=== PATIENT | male | born 1950 | race Two or more races ===

== ENCOUNTER 2016-10-29 09:55 | Inpatient (IN) | payer MEDICAID ==
[~2016-10-29] VITALS: Ht 172.7 cm; Wt 72.6 kg
[2016-10-29] VITALS (8 sets, daily range): BP systolic 82–122; BP diastolic 50–71
[2016-10-29 10:50] LABS: MEAN CORPUSCULAR HEMOGLOBIN 31.5 PG (27.0-31.0); MEAN CORPUSCULAR HGB CONC 35.1 G/DL (32.0-36.0); MEAN CORPUSCULAR VOLUME 90 FL (80-99); MEAN PLATELET VOLUME 6.2 FL (6.5-10.1); PLATELET COUNT 323 K/UL (150-450); RED BLOOD COUNT 4.21 M/UL (4.70-6.10); RED CELL DISTRIBUTION WIDTH 11.7 % (11.6-14.8); WHITE BLOOD COUNT 20.6 K/UL (4.8-10.8)
[2016-10-29] MEDS ORDERED: SULFAMETHOXAZO1 EAC2 ORAL (10:55)
[2016-10-29] MEDS ORDERED: AMLODIPINE BESY10 MG ORAL (10:55)
[2016-10-29] MEDS ORDERED: LISINOPRIL40 MG ORAL (10:55)
[2016-10-29] MEDS ORDERED: CHLORTHALIDONE25 MG ORAL (10:55)
[2016-10-29 11:02] LABS: ALANINE AMINOTRANSFERASE 47 U/L (3-41); ALBUMIN/GLOBULIN RATIO 0.9 (1.0-2.7); ANION GAP 19 (5-15); ASPARTATE AMINO TRANSFERASE 44 U/L (5-40); CALCIUM 9.4 mg/dL (8.6-10.2); CARBON DIOXIDE 23 mEQ/L (20-30); CHLORIDE 84 mEQ/L (98-107); CREATININE 1.2 mg/dL (0.7-1.2); GLOMERULAR FILTRATION RATE > 60 mL/min (>60); HEMOLYSIS 0; POTASSIUM 4.5 mEQ/L (3.4-4.9); SODIUM 126 mEQ/L (135-145); TOTAL PROTEIN 8.8 g/dL (6.6-8.7)
[2016-10-29 11:03] LABS: TROPONIN I < 0.30 ng/mL (<=0.30)
[2016-10-29 11:13] LABS: CKMB < 1.5 ng/mL (< 6.7)
[2016-10-29 11:23] LABS: BILIRUBIN,DIRECT 0.4 mg/dL (0.1-0.3)
[2016-10-29 11:31] LABS: APPEARANCE,URINE SLIGHTLY CLOUDY; KETONES,URINE NEGATIVE (NEGATIVE); LEUKOCYTE ESTERASE ,URINE 3+ (NEGATIVE); NITRITE,URINE POSITIVE (NEGATIVE); PH,URINE 6 (4.5-8.0); PROTEIN,URINE 2+ (NEGATIVE); UROBILINOGEN,URINE 8 MG/DL (0.0-1.0)
[2016-10-29 11:43] LABS: BACTERIA,URINE MANY /HPF; ICTOTEST NEGATIVE; SQUAMOUS EPITHELIAL CELL,UR FEW /LPF (NONE/OCC); WBC,URINE 30-40 /HPF (0 - 0)
[2016-10-29 11:46] LABS: NEUTROPHILS % (MANUAL) 88 % (45-75); TOTAL CELLS COUNTED 100
[2016-10-29 11:47] LABS: BAND NEUTROPHILS % (MANUAL) 0 % (0-8); BASOPHILS % (MANUAL) 0 % (0-2); EOSINOPHILS % (MANUAL) 0 % (0-3); LYMPHOCYTES % (MANUAL) 6 % (20-45); PLATELET ESTIMATE ADEQUATE; PLATELET MORPHOLOGY NORMAL
--- NOTE | 2016-10-29 11:48 | Diagnostic Imaging Report ---
Indication: SOB Technique: One view of the chest Comparison: none Findings: Lungs and pleural spaces are clear. Inspiration is suboptimal. Heart size is upper normal. Aorta is slightly tortuous. Metallic densities in the right supraclavicular region have appearance of vascular embolization coils, but could also be extraneous to the patient. Impression: No acute process. Findings as noted
[2016-10-29] MEDS ORDERED: Piperacillin/Tazobactam 3.375 GM in NS 110 ML IVPB ONE (12:15)
[2016-10-29] MEDS ORDERED: Vancomycin 1.5gm/D5W 300ml 325 ML IVPB ONE (12:15)
[2016-10-29] MEDS ORDERED: LR 1000ml 1,000 ML IV STA ×2 (12:17→13:37)
--- NOTE | 2016-10-29 12:17 | Emergency Room Report ---
History of Present Illness General Chief Complaint: Fever Source: Family Member Present Illness HPI 66YOM BIB family members with "epigastric pain" and nausea/vomiting. Per straightening roll operator, family states patient on tx for UTI. Had previous CVA so is " altered at baseline." I do not see other family members bedside. Patient has not been here before so no additional med info is available. Allergies: Coded Allergies: No Known Allergies (Unverified , 10/29/16) Patient History Past Medical History: CVA/TIA Past Surgical History: unable to obtain Pertinent Family History: unable to obtain Social History: Denies: alcohol use, drug use, smoking Immunizations: UTD Reviewed Nursing Documentation: PMH: Agreed, PSxH: Agreed Nursing Documentation-PMH Past Medical History: No History, Except For Hx Hypertension: Yes Hx Diabetes: Yes - Borderline Hx Neurological Problems: Yes - 2016 Review of Systems All Other Systems: limited - ?AMS Physical Exam Vital Signs Date Time Temp Pulse Resp B/P Pulse Ox O2 Delivery O2 Flow Rate FiO2 10/29/16 10:12 100.6 106 18 106/59 99 Room Air Sp02 EP Interpretation: reviewed, abnormal General Appearance: normal inspection, well appearing, no apparent distress, alert, non-toxic Head: normocephalic, atraumatic Eyes: bilateral eye EOMI, bilateral eye PERRL ENT: normal ENT inspection, hearing grossly normal, normal voice Neck: normal inspection, full range of motion, supple, thyroid normal, no meningismus, no bony tend Respiratory: normal inspection, lungs clear, normal breath sounds, no rhonchi, no respiratory distress, no retraction, no accessory muscle use, no wheezing Cardiovascular #1: regular rate, rhythm, no edema Gastrointestinal: normal inspection, normal bowel sounds, non tender, soft, no guarding, no hernia Genitourinary: no CVA tenderness Musculoskeletal: normal inspection, back normal, normal range of motion, Jayce' s Sign negative Neurologic: normal inspection, alert, responsive, separating machine operator III-XII nml as tested, motor strength/tone normal, speech normal Psychiatric: normal inspection, judgement/insight normal, mood/affect normal Skin: normal inspection, normal color, no rash Medical Decision Making Diagnostic Impression: Primary Impression: Fever Qualified Codes: R50.9 - Fever, unspecified Additional Impressions: Sepsis Qualified Codes: A41.9 - Sepsis, unspecified organism UTI (urinary tract infection) Qualified Codes: N30.01 - Acute cystitis with hematuria Hyponatremia ER Course VS significant for fever, hypotension Labs: Leuks 21k. Urine grossly infected. Elevated LFTs but abd soft, NT/ND Empiric Abx given Blood and Urine Cx pending Hemodynamics improved with Abx, tylenol, IVF Will get abd sono to r/o cholecystitis as well Endorsed to Dr Andrade for tele admission at 1216pm EKG Diagnostic Results Rate: normal, other - RBBB ST Segments: no acute changes ASA given to the pt in ED: No Rhythm Strip Diag. Results EP Interpretation: yes Rate: 83 Rhythm: NSR, no PVC's, no ectopy Chest X-Ray Diagnostic Results EP Interpretation: Yes Findings: no consolidation, no effusion, no pneumothorax Number of Views: 1 Last Vital Signs Date Time Temp Pulse Resp B/P Pulse Ox O2 Delivery O2 Flow Rate FiO2 10/29/16 12:00 84 15 86/53 97 Room Air 10/29/16 11:39 99.1 Status: improved Disposition: ADMITTED INPATIENT Condition: Serious Referrals: NON PHYSICIAN (PCP) VALERIE RANGEL M.D. Oct 29, 2016 12:16
[2016-10-29] MEDS ORDERED: Zosyn 3.375gm inj ONE (12:21)
[2016-10-29] MEDS ORDERED: NS 110 ML ONE (12:21)
[2016-10-29] MEDS: Piperacillin/Tazobactam 3.375 GM in D5W 110 ML IVPB SCH (21:27)
[2016-10-29] MEDS: Heparin 5000 units/ml inj SUBQ SCH (21:29)
[2016-10-30] VITALS: BP 117/58
[2016-10-30 04:00] VITALS: BP 106/57
[2016-10-30] MEDS: Piperacillin/Tazobactam 3.375 GM in D5W 110 ML IVPB SCH ×3 (04:58→21:49)
[2016-10-30 08:00] VITALS: BP 129/85
[2016-10-30 08:47] LABS: MEAN CORPUSCULAR HEMOGLOBIN 32.5 PG (27.0-31.0); MEAN CORPUSCULAR HGB CONC 36.1 G/DL (32.0-36.0); MEAN CORPUSCULAR VOLUME 90 FL (80-99); MEAN PLATELET VOLUME 6.2 FL (6.5-10.1); PLATELET COUNT 198 K/UL (150-450); RED BLOOD COUNT 3.19 M/UL (4.70-6.10); RED CELL DISTRIBUTION WIDTH 11.9 % (11.6-14.8); WHITE BLOOD COUNT 13.8 K/UL (4.8-10.8)
[2016-10-30 09:07] LABS: ALANINE AMINOTRANSFERASE 40 U/L (3-41); ALBUMIN/GLOBULIN RATIO 0.7 (1.0-2.7); ANION GAP 17 (5-15); ASPARTATE AMINO TRANSFERASE 44 U/L (5-40); CALCIUM 8.3 mg/dL (8.6-10.2); CARBON DIOXIDE 21 mEQ/L (20-30); CHLORIDE 91 mEQ/L (98-107); CREATININE 0.7 mg/dL (0.7-1.2); GLOMERULAR FILTRATION RATE > 60 mL/min (>60); HEMOLYSIS 2; POTASSIUM 3.7 mEQ/L (3.4-4.9); SODIUM 129 mEQ/L (135-145); TOTAL PROTEIN 6.6 g/dL (6.6-8.7)
[2016-10-30] MEDS: Heparin 5000 units/ml inj SUBQ SCH ×2 (09:19→20:28)
[2016-10-30 11:08] LABS: BAND NEUTROPHILS % (MANUAL) 0 % (0-8); BASOPHILS % (MANUAL) 0 % (0-2); EOSINOPHILS % (MANUAL) 0 % (0-3); HYPOCHROMASIA 1+; LYMPHOCYTES % (MANUAL) 6 % (20-45); NEUTROPHILS % (MANUAL) 86 % (45-75); PLATELET ESTIMATE ADEQUATE; PLATELET MORPHOLOGY NORMAL; TOTAL CELLS COUNTED 100
[2016-10-30 11:09] LABS: ANISOCYTOSIS 1+
[2016-10-30 12:00] VITALS: BP 114/74
--- NOTE | 2016-10-30 14:23 | Cardiology Report ---
APPROVED REPORT EKG Measurement Heart [id number] Normal sinus rhythm Right bundle branch block Cannot rule out Inferior infarct, age undetermined Abnormal ECG
[2016-10-30 16:00] VITALS: BP 122/68
--- NOTE | 2016-10-30 18:28 | History and Physical Report ---
DATE OF ADMISSION: 10/29/2016 CHIEF COMPLAINT: Sepsis. HISTORY OF PRESENT ILLNESS: The patient is a 66-year-old male. He is somewhat confused. He was apparently brought in by family members with complaints of abdominal pain, nausea, and vomiting. He has been on treatment for urinary tract infection, but it failed to improve. On evaluation in the emergency room, the patient was febrile with leukocytosis. He had evidence of urinary tract infection based on laboratories. He has been started on IV antibiotic therapy. He is now admitted for further evaluation and care. He is unable to provide any history. I have attempted to call the family, but no one answered the phone and there was no way to leave a message. PAST MEDICAL HISTORY: Apparently significant for history of stroke. PAST SURGICAL HISTORY: Unknown. CURRENT MEDICATIONS: Unknown. SOCIAL HISTORY: There is no known history of tobacco, ethanol, or drugs. FAMILY HISTORY: Unknown. REVIEW OF SYSTEMS: Unobtainable as the patient is confused. PHYSICAL EXAMINATION: VITAL SIGNS: T-max 102.4 degrees, temperature current is 98.2 degrees, pulse 84, respirations 20, and blood pressure 106/57. GENERAL: The patient is a well-developed male, in no apparent distress. He is awake and alert, but is confused. NECK: Supple. There is no jugular venous distention. HEART: Regular rate and rhythm. LUNGS: Clear. ABDOMEN: Soft and minimally tender in the suprapubic pubic region. EXTREMITIES: Without clubbing, cyanosis, or edema. There is right-sided weakness noted that is apparently chronic. LABORATORY DATA: White count 21,000, hemoglobin 13, hematocrit 37, and platelet count of 323,000. Sodium 126, potassium 4.5, chloride 84, bicarb 23, BUN 17, and creatinine is 1.2. Total bilirubin 1.3, AST 44, and ALT is 47. Urine showed 30 to 40 WBCs. ASSESSMENT: This is a 66-year-old male admitted with complaints of urinary tract infection and sepsis. 1. Urinary tract infection and sepsis, possible pyelonephritis. 2. Hyponatremia. 3. Dehydration. 4. History of stroke with right-sided hemiparesis. PLAN: 1. IV antibiotics. 2. Intravenous fluids. 3. Follow up cultures. 4. We will try to contact family regarding the patient's past medical history. Emmanuel Andrade M.D. DR: HENRRY JOB#: [id number] CC:
[2016-10-30 20:00] VITALS: BP 140/73
[2016-10-31] VITALS: BP 121/69
[2016-10-31 04:00] VITALS: BP 110/58
[2016-10-31] MEDS: Piperacillin/Tazobactam 3.375 GM in D5W 110 ML IVPB SCH ×3 (06:02→22:08)
[2016-10-31 08:00] VITALS: BP 125/72
[2016-10-31] MEDS: Heparin 5000 units/ml inj SUBQ SCH ×2 (08:20→21:31)
--- NOTE | 2016-10-31 10:38 | Diagnostic Imaging Report ---
Indication: Pain Technique: Grayscale and duplex images of the kidneys, retroperitoneum, and bladder were obtained. Comparison:None Findings: Right kidney measures 13.2 cm in length. Left kidney measures 13.1 cm in length. Both kidneys demonstrate normal echogenicity. No hydronephrosis. No focal abnormality. Normal inferior vena cava. Bladder demonstrates a postvoid residual volume of 53 mL. There is incidental finding of splenomegaly, spleen measuring 18 cm long axis dimension. Impression: Negative for hydronephrosis 53 mm post void bladder residual Splenomegaly.
[2016-10-31 12:03] VITALS: BP 116/60
--- NOTE | 2016-10-31 14:15 | General Progress Note ---
Assessment/Plan Problem List: (1) UTI (urinary tract infection) ICD Codes: N39.0 - Urinary tract infection, site not specified SNOMED: 30396586 Qualifiers: Qualified Codes: N30.01 - Acute cystitis with hematuria (2) Hyponatremia ICD Codes: E87.1 - Hypo-osmolality and hyponatremia SNOMED: 01824314 (3) Fever ICD Codes: R50.9 - Fever, unspecified SNOMED: 028872126 Qualifiers: Qualified Codes: R50.9 - Fever, unspecified (4) Sepsis ICD Codes: A41.9 - Sepsis, unspecified organism SNOMED: 05872075 Qualifiers: Qualified Codes: A41.9 - Sepsis, unspecified organism Status: stable, progressing Assessment/Plan same rx decrease ivf abx pt/ot Subjective ROS Limited/Unobtainable: No Constitutional: Reports: no symptoms HEENT: Reports: no symptoms Cardiovascular: Reports: no symptoms Respiratory: Reports: no symptoms Gastrointestinal/Abdominal: Reports: no symptoms Genitourinary: Reports: no symptoms Neurologic/Psychiatric: Reports: no symptoms Endocrine: Reports: no symptoms Hematologic/Lymphatic: Reports: no symptoms Allergies: Coded Allergies: No Known Allergies (Unverified , 10/29/16) All Systems: reviewed and negative except above Subjective no more vomiting or fevers. ucx ecoli Objective Last 24 Hour Vital Signs Date Time Temp Pulse Resp B/P Pulse Ox O2 Delivery O2 Flow Rate FiO2 10/31/16 12:03 98.8 80 20 116/60 100 Room Air 10/31/16 12:00 80 10/31/16 08:00 98.4 67 19 125/72 100 Room Air 10/31/16 08:00 78 10/31/16 04:00 78 10/31/16 04:00 98.1 61 18 110/58 99 Room Air 10/31/16 01:14 98.9 10/31/16 00:00 100.8 80 19 121/69 97 Room Air 10/31/16 00:00 78 10/30/16 20:00 91 10/30/16 20:00 100.2 87 19 140/73 96 Room Air 10/30/16 16:00 91 10/30/16 16:00 97.4 89 19 122/68 96 Room Air Intake and Output 10/30/16 10/31/16 19:00 07:00 Intake Total 150 ml 1390.0 ml Balance 150 ml 1390.0 ml Intake Oral 100 ml IV Total 150 ml 1290.0 ml # Voids 3 # Bowel Movements 1 1 Height (Feet): 5 Height (Inches): 8.00 Weight (Pounds): 160 Objective GENERAL: The patient is a well-developed male, in no apparent distress. He is awake and alert, but is confused. NECK: Supple. There is no jugular venous distention. HEART: Regular rate and rhythm. LUNGS: Clear. ABDOMEN: Soft and minimally tender in the suprapubic pubic region. EXTREMITIES: Without clubbing, cyanosis, or edema. There is right-sided weakness noted that is apparently chronic. CONNER BARRETT October 31, 2016 14:15
[2016-10-31 16:14] VITALS: BP 124/69
[2016-10-31 20:00] VITALS: BP 113/60
[2016-11-01 00:19] VITALS: BP 122/68
[2016-11-01 04:00] VITALS: BP 118/69
[2016-11-01] MEDS: Piperacillin/Tazobactam 3.375 GM in D5W 110 ML IVPB SCH (05:37)
[2016-11-01 07:40] VITALS: BP 121/66
[2016-11-01] MEDS: Heparin 5000 units/ml inj SUBQ SCH ×2 (08:37→20:53)
[2016-11-01 09:39] LABS: ALANINE AMINOTRANSFERASE 59 U/L (3-41); ALBUMIN/GLOBULIN RATIO 0.7 (1.0-2.7); ANION GAP 15 (5-15); ASPARTATE AMINO TRANSFERASE 69 U/L (5-40); CALCIUM 8.6 mg/dL (8.6-10.2); CARBON DIOXIDE 22 mEQ/L (20-30); CHLORIDE 94 mEQ/L (98-107); CREATININE 0.7 mg/dL (0.7-1.2); GLOMERULAR FILTRATION RATE > 60 mL/min (>60); HEMOLYSIS 3; POTASSIUM 2.9 mEQ/L (3.4-4.9); SODIUM 131 mEQ/L (135-145); TOTAL PROTEIN 6.8 g/dL (6.6-8.7)
[2016-11-01 11:32] VITALS: BP 109/66
--- NOTE | 2016-11-01 11:38 | General Progress Note ---
Assessment/Plan Problem List: (1) UTI (urinary tract infection) ICD Codes: N39.0 - Urinary tract infection, site not specified SNOMED: 78661479 Qualifiers: Qualified Codes: N30.01 - Acute cystitis with hematuria (2) Hyponatremia ICD Codes: E87.1 - Hypo-osmolality and hyponatremia SNOMED: 16849499 (3) Fever ICD Codes: R50.9 - Fever, unspecified SNOMED: 318661364 Qualifiers: Qualified Codes: R50.9 - Fever, unspecified (4) Sepsis ICD Codes: A41.9 - Sepsis, unspecified organism SNOMED: 93614953 Qualifiers: Qualified Codes: A41.9 - Sepsis, unspecified organism Assessment/Plan same rx dc ivf po abx pt/ot Subjective ROS Limited/Unobtainable: Yes Constitutional: Reports: malaise, weakness HEENT: Reports: no symptoms Cardiovascular: Reports: no symptoms Respiratory: Reports: no symptoms Gastrointestinal/Abdominal: Reports: no symptoms Genitourinary: Reports: no symptoms Neurologic/Psychiatric: Reports: no symptoms Endocrine: Reports: no symptoms Hematologic/Lymphatic: Reports: no symptoms Allergies: Coded Allergies: No Known Allergies (Unverified , 10/29/16) All Systems: reviewed and negative except above Subjective no more vomiting or fevers. ucx ecoli. Objective Last 24 Hour Vital Signs Date Time Temp Pulse Resp B/P Pulse Ox O2 Delivery O2 Flow Rate FiO2 11/01/16 08:00 76 11/01/16 07:40 97.9 64 20 121/66 97 Room Air 11/01/16 04:00 80 11/01/16 04:00 97.7 68 18 118/69 98 Room Air 11/01/16 00:19 99.5 77 18 122/68 98 Room Air 11/01/16 00:00 80 10/31/16 20:30 99.2 10/31/16 20:00 100.4 81 18 113/60 95 Room Air 10/31/16 20:00 80 10/31/16 16:14 97.9 76 17 124/69 98 Room Air 10/31/16 16:00 73 10/31/16 12:03 98.8 80 20 116/60 100 Room Air 10/31/16 12:00 80 Intake and Output 10/31/16 11/01/16 19:00 07:00 Intake Total 2210.08 ml 137.5 ml Balance 2210.08 ml 137.5 ml Intake Oral 1200 ml IV Total 1010.08 ml 137.5 ml # Voids 5 1 # Bowel Movements 3 Laboratory Tests 11/01/16 08:00: Sodium Level 131L, Potassium Level 2.9L, Chloride Level 94L, Carbon Dioxide Level 22, Anion Gap 15, Blood Urea Nitrogen 9, Creatinine 0.7, Estimat Glomerular Filtration Rate > 60, Glucose Level 143H, Calcium Level 8.6, Total Bilirubin 0.7, Aspartate Amino Transf (AST/SGOT) 69H, Alanine Aminotransferase ( ALT/SGPT) 59H, Alkaline Phosphatase 120, Total Protein 6.8, Albumin 2.9L, Globulin 3.9, Albumin/Globulin Ratio 0.7L Height (Feet): 5 Height (Inches): 8.00 Weight (Pounds): 160 Objective GENERAL: The patient is a well-developed male, in no apparent distress. He is awake and alert, but is confused. NECK: Supple. There is no jugular venous distention. HEART: Regular rate and rhythm. LUNGS: Clear. ABDOMEN: Soft and minimally tender in the suprapubic pubic region. EXTREMITIES: Without clubbing, cyanosis, or edema. There is right-sided weakness noted that is apparently chronic. CONNER BARRETT November 01, 2016 11:38
[2016-11-01 16:01] VITALS: BP 106/80
[2016-11-01 20:00] VITALS: BP 120/70
[2016-11-01] MEDS: Ciprofloxacin 500mg tab ORAL SCH (20:51)
[2016-11-01] MEDS ORDERED: Ciprofloxacin 500mg tab ORAL SCH (21:00)
[2016-11-02] VITALS: BP 126/76
[2016-11-02 04:00] VITALS: BP 124/71
[2016-11-02 08:00] VITALS: BP 122/65
[2016-11-02] MEDS: Ciprofloxacin 500mg tab ORAL SCH ×2 (08:24→21:02)
[2016-11-02] MEDS: Heparin 5000 units/ml inj SUBQ SCH ×2 (08:25→21:07)
[2016-11-02] MEDS ORDERED: CIPROFLOXACIN500 M2 ORAL (08:44)
[2016-11-02] MEDS ORDERED: BAYER CHEWABLE81 MG PO (08:44)
[2016-11-02 11:41] VITALS: BP 111/65
[2016-11-02 16:00] VITALS: BP 124/72
[2016-11-02 20:00] VITALS: BP 141/76
[2016-11-03] VITALS: BP 135/75
[2016-11-03 04:00] VITALS: BP 134/72
[2016-11-03 08:09] VITALS: BP 120/74
[2016-11-03] MEDS: Ciprofloxacin 500mg tab ORAL SCH ×2 (08:17→22:08)
[2016-11-03] MEDS: Heparin 5000 units/ml inj SUBQ SCH ×2 (08:22→22:11)
[2016-11-03 12:08] VITALS: BP 118/69
[2016-11-03 12:58] LABS: BASOPHILS % (AUTO) 0.9 % (0.0-2.0); EOSINOPHILS % (AUTO) 1.6 % (0.0-3.0); LYMPHOCYTES % (AUTO) 20.1 % (20.0-45.0); MEAN CORPUSCULAR HEMOGLOBIN 31.4 PG (27.0-31.0); MEAN CORPUSCULAR HGB CONC 35.6 G/DL (32.0-36.0); MEAN CORPUSCULAR VOLUME 88 FL (80-99); MEAN PLATELET VOLUME 5.6 FL (6.5-10.1); MONOCYTES % (AUTO) 9.3 % (1.0-10.0); NEUTROPHILS % (AUTO) 68.2 % (45.0-75.0); PLATELET COUNT 307 K/UL (150-450); RED BLOOD COUNT 3.77 M/UL (4.70-6.10); RED CELL DISTRIBUTION WIDTH 11.3 % (11.6-14.8); WHITE BLOOD COUNT 5.5 K/UL (4.8-10.8)
--- NOTE | 2016-11-03 13:18 | General Progress Note ---
Assessment/Plan Problem List: (1) UTI (urinary tract infection) ICD Codes: N39.0 - Urinary tract infection, site not specified SNOMED: 65781507 Qualifiers: Qualified Codes: N30.01 - Acute cystitis with hematuria (2) Hyponatremia ICD Codes: E87.1 - Hypo-osmolality and hyponatremia SNOMED: 56983064 (3) Fever ICD Codes: R50.9 - Fever, unspecified SNOMED: 046689686 Qualifiers: Qualified Codes: R50.9 - Fever, unspecified (4) Sepsis ICD Codes: A41.9 - Sepsis, unspecified organism SNOMED: 82403672 Qualifiers: Qualified Codes: A41.9 - Sepsis, unspecified organism Status: stable, progressing Assessment/Plan same rx dc ivf po abx pt/ot follow labs stable for snf Subjective ROS Limited/Unobtainable: No Constitutional: Reports: malaise, weakness HEENT: Reports: no symptoms Cardiovascular: Reports: no symptoms Respiratory: Reports: no symptoms Gastrointestinal/Abdominal: Reports: no symptoms Genitourinary: Reports: no symptoms Neurologic/Psychiatric: Reports: no symptoms Endocrine: Reports: no symptoms Hematologic/Lymphatic: Reports: no symptoms Allergies: Coded Allergies: No Known Allergies (Unverified , 10/29/16) All Systems: reviewed and negative except above Subjective confused. family cant take pt home. requesting snf Objective Last 24 Hour Vital Signs Date Time Temp Pulse Resp B/P Pulse Ox O2 Delivery O2 Flow Rate FiO2 11/03/16 12:08 98.2 68 20 118/69 96 Room Air 11/03/16 08:09 97.6 74 15 120/74 96 Room Air 11/03/16 04:00 97.1 62 16 134/72 97 Room Air 11/03/16 00:00 97.2 75 18 135/75 97 Room Air 11/02/16 20:00 97.0 71 18 141/76 97 Room Air 11/02/16 16:00 97.7 62 18 124/72 97 Room Air Intake and Output 11/02/16 11/03/16 19:00 07:00 Intake Total 720 ml 400 ml Output Total 350 ml Balance 720 ml 50 ml Intake Oral 720 ml 400 ml Output Urine Total 350 ml # Voids 5 1 # Bowel Movements 2 Laboratory Tests 11/03/16 12:30: White Blood Count 5.5, Red Blood Count 3.77L, Hemoglobin 11.8L, Hematocrit 33.3L , Mean Corpuscular Volume 88, Mean Corpuscular Hemoglobin 31.4H, Mean Corpuscular Hemoglobin Concent 35.6, Red Cell Distribution Width 11.3L, Platelet Count 307, Mean Platelet Volume 5.6L, Neutrophils (%) (Auto) 68.2, Lymphocytes (%) (Auto) 20.1, Monocytes (%) (Auto) 9.3, Eosinophils (%) (Auto) 1.6, Basophils (%) (Auto) 0.9, Sodium Level [Pending], Potassium Level [Pending] , Chloride Level [Pending], Carbon Dioxide Level [Pending], Blood Urea Nitrogen [Pending], Creatinine [Pending], Estimat Glomerular Filtration Rate [Pending], Glucose Level [Pending], Calcium Level [Pending] Height (Feet): 5 Height (Inches): 8.00 Weight (Pounds): 160 Objective GENERAL: The patient is a well-developed male, in no apparent distress. He is awake and alert, but is confused. NECK: Supple. There is no jugular venous distention. HEART: Regular rate and rhythm. LUNGS: Clear. ABDOMEN: Soft and minimally tender in the suprapubic pubic region. EXTREMITIES: Without clubbing, cyanosis, or edema. There is right-sided weakness noted that is apparently chronic. CONNER BARRETT November 03, 2016 13:18
[2016-11-03 13:32] LABS: ANION GAP 18 (5-15); CALCIUM 9.3 mg/dL (8.6-10.2); CARBON DIOXIDE 23 mEQ/L (20-30); CHLORIDE 98 mEQ/L (98-107); CREATININE 0.6 mg/dL (0.7-1.2); GLOMERULAR FILTRATION RATE > 60 mL/min (>60); HEMOLYSIS 4; POTASSIUM 4.1 mEQ/L (3.4-4.9); SODIUM 139 mEQ/L (135-145)
[2016-11-03 15:44] VITALS: BP 126/73
[2016-11-03] MEDS ORDERED: Tubing IV Secondary IV ONE (16:39)
[2016-11-03] MEDS ORDERED: Tubing IV Blood Pump IV ONE (16:39)
[2016-11-03] MEDS ORDERED: NS 275ml ONE (16:39)
[2016-11-03 20:00] VITALS: BP 152/83
[2016-11-04] VITALS: BP 130/79
[2016-11-04 04:00] VITALS: BP 129/74
[2016-11-04] MEDS: Ciprofloxacin 500mg tab ORAL SCH ×2 (08:43→20:41)
[2016-11-04 08:47] VITALS: BP 136/78
[2016-11-04] MEDS: Heparin 5000 units/ml inj SUBQ SCH ×2 (08:51→20:46)
[2016-11-04 12:10] VITALS: BP 128/73
--- NOTE | 2016-11-04 13:28 | General Progress Note ---
Assessment/Plan Problem List: (1) UTI (urinary tract infection) ICD Codes: N39.0 - Urinary tract infection, site not specified SNOMED: 52086800 Qualifiers: Qualified Codes: N30.01 - Acute cystitis with hematuria (2) Hyponatremia ICD Codes: E87.1 - Hypo-osmolality and hyponatremia SNOMED: 24101503 (3) Fever ICD Codes: R50.9 - Fever, unspecified SNOMED: 253546730 Qualifiers: Qualified Codes: R50.9 - Fever, unspecified (4) Sepsis ICD Codes: A41.9 - Sepsis, unspecified organism SNOMED: 08810387 Qualifiers: Qualified Codes: A41.9 - Sepsis, unspecified organism Status: stable Assessment/Plan same rx dc ivf po abx pt/ot follow labs stable for snf ok to travel with family on airplane to [place] Subjective ROS Limited/Unobtainable: No Constitutional: Reports: malaise, weakness HEENT: Reports: no symptoms Cardiovascular: Reports: no symptoms Respiratory: Reports: no symptoms Gastrointestinal/Abdominal: Reports: no symptoms Genitourinary: Reports: no symptoms Neurologic/Psychiatric: Reports: no symptoms Endocrine: Reports: no symptoms Hematologic/Lymphatic: Reports: no symptoms Allergies: Coded Allergies: No Known Allergies (Unverified , 10/29/16) All Systems: reviewed and negative except above Subjective confused. family cant take pt home. requesting snf. labs better. no fever. ok for dc. looking for snf Objective Last 24 Hour Vital Signs Date Time Temp Pulse Resp B/P Pulse Ox O2 Delivery O2 Flow Rate FiO2 11/04/16 12:10 96.5 70 20 128/73 97 Room Air 11/04/16 08:47 97.5 72 21 136/78 95 Room Air 11/04/16 04:00 97.9 65 20 129/74 97 Room Air 11/04/16 00:00 98.2 69 20 130/79 97 Room Air 11/03/16 20:00 98.1 73 20 152/83 97 Room Air 11/03/16 15:44 98.0 66 20 126/73 98 Room Air Intake and Output 11/03/16 11/04/16 19:00 07:00 Intake Total 760 ml Output Total 100 ml Balance 760 ml -100 ml Intake Oral 760 ml Output Urine Total 100 ml # Voids 4 1 # Bowel Movements 1 Height (Feet): 5 Height (Inches): 8.00 Weight (Pounds): 160 Objective GENERAL: The patient is a well-developed male, in no apparent distress. He is awake and alert, but is confused. NECK: Supple. There is no jugular venous distention. HEART: Regular rate and rhythm. LUNGS: Clear. ABDOMEN: Soft and minimally tender in the suprapubic pubic region. EXTREMITIES: Without clubbing, cyanosis, or edema. There is right-sided weakness noted that is apparently chronic. CONNER BARRETT November 04, 2016 13:28
[2016-11-04 16:13] VITALS: BP 139/79
[2016-11-04 20:00] VITALS: BP 143/79
[2016-11-05] VITALS: BP 129/71
[2016-11-05 04:47] VITALS: BP 130/72
[2016-11-05 08:10] VITALS: BP 149/86
--- NOTE | 2016-11-05 08:24 | General Progress Note ---
Assessment/Plan Problem List: (1) UTI (urinary tract infection) ICD Codes: N39.0 - Urinary tract infection, site not specified SNOMED: 99558652 Qualifiers: Qualified Codes: N30.01 - Acute cystitis with hematuria (2) Hyponatremia ICD Codes: E87.1 - Hypo-osmolality and hyponatremia SNOMED: 89688415 (3) Fever ICD Codes: R50.9 - Fever, unspecified SNOMED: 281290428 Qualifiers: Qualified Codes: R50.9 - Fever, unspecified (4) Sepsis ICD Codes: A41.9 - Sepsis, unspecified organism SNOMED: 54612719 Qualifiers: Qualified Codes: A41.9 - Sepsis, unspecified organism Status: stable, progressing Assessment/Plan same rx dc ivf po abx pt/ot follow labs stable for snf ok to travel with family on airplane to [place] Subjective ROS Limited/Unobtainable: No Constitutional: Reports: malaise, weakness HEENT: Reports: no symptoms Cardiovascular: Reports: no symptoms Respiratory: Reports: no symptoms Gastrointestinal/Abdominal: Reports: no symptoms Genitourinary: Reports: no symptoms Neurologic/Psychiatric: Reports: no symptoms Endocrine: Reports: no symptoms Hematologic/Lymphatic: Reports: no symptoms Allergies: Coded Allergies: No Known Allergies (Unverified , 10/29/16) All Systems: reviewed and negative except above Subjective confused. family cant take pt home. requesting snf. labs better. no fever. ok for dc. looking for snf. still no placement Objective Last 24 Hour Vital Signs Date Time Temp Pulse Resp B/P Pulse Ox O2 Delivery O2 Flow Rate FiO2 11/05/16 08:10 96.8 73 18 149/86 96 Room Air 11/05/16 04:47 97.7 64 20 130/72 98 Room Air 11/05/16 00:00 98.1 69 20 129/71 98 Room Air 11/04/16 20:00 98.2 75 20 143/79 98 Room Air 11/04/16 16:13 97.2 68 21 139/79 97 Room Air 11/04/16 12:10 96.5 70 20 128/73 97 Room Air 11/04/16 08:47 97.5 72 21 136/78 95 Room Air Intake and Output 11/04/16 11/05/16 19:00 07:00 Intake Total 240 ml Balance 240 ml Intake Oral 240 ml # Voids 1 # Bowel Movements 2 1 Height (Feet): 5 Height (Inches): 8.00 Weight (Pounds): 160 Objective GENERAL: The patient is a well-developed male, in no apparent distress. He is awake and alert, but is confused. NECK: Supple. There is no jugular venous distention. HEART: Regular rate and rhythm. LUNGS: Clear. ABDOMEN: Soft and minimally tender in the suprapubic pubic region. EXTREMITIES: Without clubbing, cyanosis, or edema. There is right-sided weakness noted that is apparently chronic. CONNER BARRETT November 05, 2016 08:24
[2016-11-05] MEDS: Ciprofloxacin 500mg tab ORAL SCH (09:44)
[2016-11-05] MEDS: Heparin 5000 units/ml inj SUBQ SCH (09:44)
[2016-11-05 12:00] VITALS: BP 142/77
[2016-11-05 16:09] VITALS: BP 140/74
--- NOTE | 2016-11-08 04:39 | Discharge Summary 2 SIG ---
DATE OF ADMISSION: 10/29/2016 DATE OF DISCHARGE: 11/05/2016 REASON FOR ADMISSION: 66-year-old male was brought to the emergency room for evaluation of epigastric pain, nausea, and vomiting. Family reported that the patient was on treatment for UTI. The patient has a history of stroke and altered at the baseline. Workup in the emergency room revealed a fever -lowest at 100.6 and highest at 102.4. The patient had a low blood pressure of 86/53. White blood count - 21. Urinalysis with evidence of gross UTI , noted elevated LFT. Sodium was 126. The patient was admitted for further management. ADMITTING DIAGNOSES: 1. Sepsis. 2. Urinary tract infection. 3. Acute hyponatremia. 4. Dehydration. 5. History of cerebrovascular accident with right-sided hemiparesis. HOSPITAL STAY: The patient was admitted. The patient was started on the IV fluids. Septic workup initiated in the emergency room. Initially, was on empiric antibiotic, which optimized based on urine culture. Urine culture was positive for E. coli. The patient , status post IV antibiotic and discharged on oral antibiotic for additional five days. Leukocytosis resolved. Acute hyponatremia was depletional, secondary to dehydration and resolved after IV fluids. Sodium -up to 139 prior to discharge. The patient was working with physical and occupational therapists. Troponin was negative. Renal ultrasound revealed no evidence of hydronephrosis. LFT still elevated. Blood pressure was stable after IV fluids. The patient was stable for transfer to the [facility] facility. DISCHARGE DIAGNOSES: 1. Sepsis. 2. Urinary tract infection/Escherichia coli. 3. Acute hyponatremia, resolved. 4. Dehydration. 5. History of cerebrovascular accident with right-sided hemiparesis. DISCHARGE MEDICATIONS: See medication reconciliation list. Continue Cipro oral for five more days as outlined in medication reconciliation list. DISCHARGE INSTRUCTIONS: The patient was discharged to [facility] facility . Medical doctor cleared the patient to travel with the family on airplane to [place]. Emmanuel Andrade M.D. I have been assigned to dictate discharge summary on this account and I was not involved in the patient's management. Cami Parkinson N.P. ([place]te[place]) DR: MADDIE JOB#: [id number] CC: SEAN
== END 2016-11-05 16:20 | disposition home or self-care (01) | DRG 720 ==
LOC: EMR 10:30 → 2E 10:53 → EDBEDREQ 13:29 → 2E 10-30 15:24 → 4W 11-01 15:00
DX: A41.9 Sepsis, unspecified organism (principal); E87.1 Hypo-osmolality and hyponatremia; I69.351 Hemiplegia and hemiparesis following cerebral infarction affecting right dominant side; N39.0 Urinary tract infection, site not specified; B96.20 Unspecified Escherichia coli [E. coli] as the cause of diseases classified elsewhere; E86.0 Dehydration
CPT/HCPCS: 36415; 71010; 76775; 80048; 80053; 81003; 82248; 82550; 82553; 83605; 84484; 85007; 85025; 87086; 87181; 93005; J8499